=== PATIENT | male | born 1995 | race Caucasian/White ===

== ENCOUNTER 2019-03-22 13:21 | Emergency (ER) | payer SELFPAY ==
[2019-03-22] MEDS ORDERED: diphenhydrAMINE HCL 25 MG CAPSULE (FP) PO ONE (13:24)
--- NOTE | 2019-03-22 13:24 | PDOC ---
Rapid Medical Evaluation Time Seen by Provider: 03/22/19 13:22 Medical Evaluation: 03/22/19 13:22 CC: rash to trunk and arms after camping at [place] PE: multiform raised red rash to trunk and BUE Orders: benadryl Patient will proceed to ED for continued evaluation. Discharge Disposition - Diagnosis Rash - Referrals - Patient Instructions - Post Discharge Activity
[2019-03-22 13:25] VITALS: BP 131/69; PULSE 108; TEMP 99.1; BMI 24.3
[2019-03-22] MEDS ORDERED: DEXAMETHASONE LIQUID 0.5 MG/5 ML 240 ML BULK BOTTLE PO ONE (14:01)
[2019-03-22] MEDS ORDERED: DEXAMETHASONE SOD PHOSPHATE 10 MG/1 ML VIAL ONE (14:05)
--- NOTE | 2019-03-22 14:06 | PDOC ---
History of Present Illness - General Chief Complaint: Rash Stated Complaint: RASH Time Seen by Provider: 03/22/19 13:22 History Source: Patient Exam Limitations: No Limitations Past History - Travel Traveled outside of the country in the last 30 days: No Close contact w/someone who was outside of country & ill: No - Past Medical History Allergies/Adverse Reactions: Allergies Allergy/AdvReac Type Severity Reaction Status Date / Time No Known Allergies Allergy Verified 03/22/19 13:37 Home Medications: Ambulatory Orders Diphenhydramine HCl [Benadryl -] 25 mg PO Q8H #21 capsule 03/22/19 Ranitidine [Zantac -] 150 mg PO BID #14 tablet 03/22/19 predniSONE [Deltasone -] 20 mg PO ASDIR #30 tablet 03/22/19 COPD: No Liver Disease: Yes - Suicide/Smoking/Psychosocial Hx Smoking History: Current every day smoker Number of Cigarettes Smoked Daily: 5 Information on smoking cessation initiated: No Hx Alcohol Use: Yes Drug/Substance Use Hx: Yes Review of Systems - Review of Systems Able to Perform ROS?: Yes Comments:: 03/22/19 13:57 CONSTITUTIONAL: Absent: fever, chills, diaphoresis, generalized weakness, malaise, loss of appetite HEENT: Absent: rhinorrhea, nasal congestion, throat pain, throat swelling, difficulty swallowing, mouth swelling, ear pain, eye pain, visual Changes SKIN: Present: Rash, itching Absent:pallor NEUROLOGIC: Absent: headache, focal weakness or paresthesias, dizziness, unsteady gait, seizure, mental status changes, bladder or bowel incontinence PSYCHIATRIC: Absent: anxiety, depression, suicidal or homicidal ideation, hallucinations. Is the patient limited Turkish proficient: No *Physical Exam - Vital Signs Last Vital Signs Temp Pulse Resp BP Pulse Ox 99.1 F 108 H 16 131/69 95 03/22/19 13:22 03/22/19 13:22 03/22/19 13:22 03/22/19 13:22 03/22/19 13:22 - Physical Exam Comments: 03/22/19 14:10 GENERAL: The patient is awake, alert, and fully oriented, in no acute distress. HEAD: Normal with no signs of trauma. EYES: Pupils equal, round and reactive to light, extraocular movements intact, sclera anicteric, conjunctiva clear. EXTREMITIES: Normal range of motion, no edema. NEUROLOGICAL: Normal speech, normal gait. PSYCH: Normal mood, normal affect. SKIN: Erythematous, pruitic papules and patches to the arms, chest, back now extending to the upper legs. Warm, Dry, normal turgor, no rashes or lesions noted. Medical Decision Making - Medical Decision Making 03/22/19 14:11 The patient is a 23-year-old male with no past medical history who presents to the ER today for a rash to this arms, legs, chest and back starting on Friday. The patient states he was camping in [place] when the rash started. He states that the Rash is very itchy and is spreading. Denies fevers , chills, shortness of breath, difficulty swallowing, nausea vomiting and diarrhea. A/P: Allergic reaction, possible poison ros rash On exam patient with erythematous papules, patches. They are blanching. States the rash was initially on the arms and spread to the chest and back We will treat with prednisone taper, Benadryl and Zantac Told patient he should follow-up with his primary care doctor this week. He states that he is moving to [place] and will establish care there to have his rash evaluated Discharge home with return precautions I discussed the physical exam findings, ancillary test results and final diagnoses with the patient. I answered all of the patient's questions. The patient was satisfied with the care received and felt comfortable with the discharge plan and treatment plan. The Patient agrees to follow up with the primary care physician/specialist within 24-72 hours. Return precautions were given. *DC/Admit/Observation/Transfer Diagnosis at time of Disposition: Rash - Discharge Dispostion Disposition: HOME Condition at time of disposition: Stable Decision to Admit order: No - Prescriptions Prescriptions: Diphenhydramine HCl [Benadryl -] 25 mg PO Q8H #21 capsule predniSONE [Deltasone -] 20 mg PO ASDIR #30 tablet Ranitidine [Zantac -] 150 mg PO BID #14 tablet - Referrals Referrals: Alfred Ellis MD [Staff Physician] - - Patient Instructions Printed Discharge Instructions: DI for Poison Ros Allergy Additional Instructions: you were evaluated for your rash today. It is most likely due to poison ros. Please take the prednisone as directed starting tomorrow. You received your first dose of steroids today in the ER. Finish the entire prescription of prednisone even if you feel better. If you don't finish the prescription, you could have a rebound rash that is worse than the one you have now. Please take Benadryl every 8 hours to help with the itching for 1 week. Take Zantac twice a day for 1 week to help with the itching He may use calamine lotion to help with the itch Please follow-up with your primary care provider this week Return to the ER for any new or worsening symptoms. - Post Discharge Activity Forms/Work/School Notes: Back to Work
== END 2019-03-22 14:18 | disposition home or self-care (01) ==
LOC: JERFT 13:21
DX: R21 Rash and other nonspecific skin eruption (principal); F17.210 Nicotine dependence, cigarettes, uncomplicated
CPT/HCPCS: 99281-25